=== PATIENT | male | born 1990 | race Caucasian/White ===

== ENCOUNTER 2021-06-17 10:30 | Outpatient (REF) | payer OTHER, SELFPAY ==
[2021-06-17 12:28] LABS: Alanine Aminotransferase 47 U/L (0-40); Albumin Level 4.6 g/dL (3.5-5.0); Alkaline Phosphatase 70 U/L (39-117); Anion Gap 14 (12-20); Aspartate Amino Transferase 24 U/L (5-37); Bilirubin Total 0.4 mg/dL (0.0-1.0); Blood Urea Nitrogen 14 mg/dL (9-16); Calcium 9.3 mg/dL (8.4-10.2); Carbon Dioxide 24 mmol/L (22-29); Chloride 105 mmol/L (96-108); Cholesterol 119 mg/dL; Estimated Glomerular Filt Rate > 60; Glucose Fasting 86 mg/dL (60-99); HDL Cholesterol 46 mg/dL; LDL Cholesterol Calculated 43 mg/dl; Potassium 3.7 mmol/L (3.3-5.1); Sodium 139 mmol/L (135-145); Total Protein 7.6 g/dL (6.5-8.0); Triglycerides 152 mg/dL
[2021-06-17 12:31] LABS: HBc Num1 0.08 S/CO (0.00-0.79); HBsAGNum1 0.34 S/CO (0.00-0.99); Hepatitis B Core Antibody Nonreactive (Nonreactive); Hepatitis B Surface Antigen Negative (Negative); ~HepC Num1 0.13 S/CO (0.00-0.79); ~Hepatitis C Antibody Nonreactive (Nonreactive)
[2021-06-17 12:33] LABS: TSH reflex Free T4 3.12 uIU/mL (0.32-4.0)
[2021-06-17 13:11] LABS: HIV AB/AG Nonreactive (Nonreactive); HIV Num 1 0.09 S/CO (0.00-0.99); ~Hepatitis B Surface Antibody NONREACTIVE (Nonreactive)
[2021-06-17 15:16] LABS: CT PCR NOT DETECTED (Not Detect.); NG PCR NOT DETECTED (Not Detect.)
== END 2021-06-17 10:31 | disposition home or self-care (01) ==
LOC: HO.HMGCLDS 10:30
PROVIDERS: PCP Internal Medicine; Visit Provider Internal Medicine
DX: Z00.01 Encounter for general adult medical examination with abnormal findings (principal); E66.01 Morbid (severe) obesity due to excess calories; F10.10 Alcohol abuse, uncomplicated; Z11.3 Encounter for screening for infections with a predominantly sexual mode of transmission; Z11.8 Encounter for screening for other infectious and parasitic diseases; Z11.4 Encounter for screening for human immunodeficiency virus [HIV]; Z11.59 Encounter for screening for other viral diseases; Z13.29 Encounter for screening for other suspected endocrine disorder; Z23 Encounter for immunization
CPT/HCPCS: 80053; 80061; 84443; 86704; 86706; 86803; 87340; 87389; 87491; 87591

== ENCOUNTER 2024-03-18 08:08 | Outpatient (AMB) | payer OTHER, SELFPAY ==
[2024-03-18 08:34] VITALS: BP 126/70; PULSE 87; TEMP 37.1; O2SAT 98; BMI 43.0
--- NOTE | 2024-03-18 08:34 | AM.OFFWIN_ITS ---
Intake Vital Signs 03/18/24 08:34 Height 5 ft 11 in Weight 308 lb BMI 43.0 BP 126/70 Blood Pressure Location Lt brachial Position Sitting Pulse 87 Pulse Source Pulse Oximeter Temp 98.8 F Temp Source Oral Pulse Oximetry (%) 98 Oxygen Delivery Method Room Air Intake Visit Reasons: EP ?ear infection Intake Note: pt c/o RT ear pain. Started last Thursday (Had old Z-Hernandez at home, took that. Symptoms resolved then returned again last night) Patient Tobacco Use Status: Current everyday Tobacco user Allergies amoxicillin Adverse Reaction (Verified 03/18/24 08:40) rash Do you need a note to return to daycare/school/sports/work: No HPI EP ?ear infection HPI Details This is a 33-year-old male patient who presents to the walk-in clinic today with a 7 day history of right ear pain. When this started, he took an old Z-Hernandez he had at home. Symptoms improved while on this, however then recurred once he stopped this medication. Woke up today with severe right ear pain. Denies fever or chills. Denies respiratory symptoms. FOR[facility]LY [facility], [facility] Medical History Refused influenza vaccine COVID-19 vaccine series declined Smoker unmotivated to quit LUKE (obstructive sleep apnea) Alcohol use disorder, mild, abuse Morbid obesity due to excess calories Surgical History No pertinent past surgical history Family History Father Substance use disorder Alcoholism Paternal Grandfather Lung cancer Paternal Grandmother Lung cancer Social History Household Members: Family Alcohol intake: current Alcohol intake frequency: a few times a week Alcohol type: beer and hard liquor Patient Tobacco Use Status: Current everyday Tobacco user Cigarette Packs Per Day: 1.5 e-Cigarette/Vaping Use: Never Used Substance Use Type: Crack/Cocaine service: No Current occupational status: employed Review of Systems Const All systems reviewed & are unremarkable except as noted in HPI and below Physical Exam Vital Signs: Last Vital Signs Temp 98.8 F 03/18/24 08:34 Pulse 87 03/18/24 08:34 BP 126/70 03/18/24 08:34 Pulse Ox 98 03/18/24 08:34 Oxygen Delivery Method Room Air 03/18/24 08:34 BMI result Body Mass Index 43.0 Const General: cooperative, healthy appearing, comfortable and no acute distress HEENT Head: Yes normal to inspection Ears: hearing grossly normal bilaterally, external ears normal, TM normal on the left and TM abnormal (right - erythema, purulent effusion, fluid behind TM) General nose exam: Normal external nose present Face and sinus: Yes normal facial exam Mouth: Normal oral and palatal mucosa present Throat: Yes posterior oropharynx normal Neck Neck: Yes no lymphadenopathy Resp Effort & Inspection: normal respiratory effort Auscultation: clear to auscultation bilaterally Cardio Rate: regular rate Rhythm: regular rhythm Skin General skin exam: no rashes or lesions noted Extrem General: Yes capillary refill normal and Yes no clubbing, cyanosis or edema Psych Appearance: grossly normal Mental Status: mental status grossly normal Speech and movement: Normal speech and movement present Assessment & Plan Assessment & Plan (1) Right otitis media with effusion: Code(s): H65.91 - Unspecified nonsuppurative otitis media, right ear Plan: Amox allergy - will start on Cefdinir BID 7 days. Reviewed indications, use, possible, side effects. Advised otc decongestant and NSAIDS/Tylenol as needed. Will return to the office if he does not improve with treatment. All questions were answered and patient agrees to plan. Medications: New cefdinir Take one capsule twice a day by mouth for 7 days. 300 mg PO BID 7 days 14 caps 0RF H65.92 - Unspecified nonsuppurative otitis media, left ear Coding Level of Care Code Est Pt Level 4 (42303) Diagnoses Right otitis media with effusion H65.91
== END 2024-03-18 09:17 | disposition home or self-care (01) ==
PROVIDERS: PCP Internal Medicine; Visit Provider Nurse Practitioner Family
DX: H65.91 Unspecified nonsuppurative otitis media, right ear (principal)
CPT/HCPCS: 99214